=== PATIENT | male | born 1975 | race Two or more races ===

== ENCOUNTER → 2019-07-24 | Emergency (ER) | payer SELFPAY ==
[~2019-07-24] VITALS: Ht 172.7 cm; Wt 108.9 kg
[2019-07-24 16:21] VITALS: BP 142/93
== END | disposition home or self-care (01) ==
LOC: ER 15:56
DX: L25.9 Unspecified contact dermatitis, unspecified cause (principal); L50.9 Urticaria, unspecified

== ENCOUNTER 2020-01-14 13:46 | Emergency (ER) | payer SELFPAY ==
[~2020-01-14] VITALS: Ht 172.7 cm; Wt 103.9 kg
[2020-01-14 13:59] VITALS: BP 152/97
== END 2020-01-14 16:08 | disposition home or self-care (01) ==
LOC: ER 13:46
DX: R07.81 Pleurodynia (principal); M25.511 Pain in right shoulder
CPT/HCPCS: 71101; 73030